=== PATIENT | male | born 1950 | race Hispanic/Latino ===

== ENCOUNTER 2017-06-04 10:11 | Emergency (ER) | payer MEDICAID ==
[2017-06-04 10:21] VITALS: BP 155/72
== END 2017-06-04 13:58 | disposition left against medical advice (07) ==
LOC: ED 10:11
DX: M54.2 Cervicalgia (principal); R51 Headache; E11.9 Type 2 diabetes mellitus without complications; I10 Essential (primary) hypertension; E78.00 Pure hypercholesterolemia, unspecified; F17.200 Nicotine dependence, unspecified, uncomplicated; Z53.21 Procedure and treatment not carried out due to patient leaving prior to being seen by health care provider